=== PATIENT | female | born 1950 | race Caucasian/White ===

== ENCOUNTER → 2020-09-03 10:26 | Outpatient (CLI) | payer MEDICARE, OTHER, SELFPAY ==
--- NOTE | ~2020-09-03 | DEXA_ITS ---
Bone Density Report Name: Trish Callahan Age: 70 Sex: Female Ethnicity: White Date of : 1950 Indication: osteopenia; parental hip fracture; height loss; Referring Provider: Jael Aviles Study: Bone densitometry was performed. Exam Date: September 03, 2020 Accession number: [id number] Bone Density: Region BMD T-score Z-score Classification AP Spine (L1-L4) 0.960 -0.8 1.2 Normal Femoral Neck (Left) 0.626 -2.0 -0.3 Osteopenia Total Hip (Left) 0.763 -1.5 0.0 Osteopenia Femoral Neck (Right) 0.595 -2.3 -0.6 Osteopenia Total Hip (Right) 0.696 -2.0 -0.6 Osteopenia Total Hip Mean 0.730 -1.8 -0.3 Osteopenia World Health Organization criteria for BMD impression classify patients as: Normal (T-score at or above -1.0), Osteopenia (T-score between -1.0 and -2.5), or Osteoporosis (T-score at or below -2.5). 10-year Fracture Risk(1): Major Osteoporotic Fracture 19% Hip Fracture 4.4% Reported Risk Factors: [place] (), Neck BMD=0.595, BMI=21.3, parental fracture (1) FRAX(R) Version 3.08. Fracture probability calculated for an untreated patient. Fracture probability may be lower if the patient has received treatment. Previous Exams: Region Exam Age BMD T-score BMD Change BMD Change Date g/cm2 vs Baseline vs Previous AP Spine(L1-L4) 09/03/2020 70 0.960 -0.8 0.027* 0.027* 04/10/2016 66 0.933 -1.0 Total Hip(Left) 09/03/2020 70 0.763 -1.5 -0.020 -0.020 04/10/2016 66 0.783 -1.3 Total Hip(Right) 09/03/2020 70 0.696 -2.0 -0.030* -0.030* 04/10/2016 66 0.727 -1.8 *Denotes significance at 95% confidence level, LSC for AP Spine = 0.022 g/cm2, LSC for Total Hip = 0.027 g/cm2 Clinical Information Provided by Patient: Parent has had a hip fracture Has used the following medications: Vitamin D, Calcium, MTV Patient maximum height was 63.75 Menopause Age: 51 No regular weight bearing exercise Drinks caffeinated beverages Onset of menses at age 15 Number of children 0 Impression: The patient has low bone mass, based on the Right Femoral Neck T-score. The patient has an estimated ten-year risk of hip fracture of 4.4% and an estimated ten-year risk of major fracture of 19%, based on the WHO FRAX algorithm. The patient has risk factors, including: parental hip fracture. The BMD for the Total Hip(Right) decreased, changing by -0.030 since the last DXA exam. Discussion: BONE DE
== END ==
PROVIDERS: PCP Physician Assistant; Visit Provider Family Medicine
DX: Z78.0 Asymptomatic menopausal state (principal); M85.852 Other specified disorders of bone density and structure, left thigh; M85.851 Other specified disorders of bone density and structure, right thigh
CPT/HCPCS: 77080

== ENCOUNTER 2022-04-08 00:15 | Day surgery (SDC) | payer MEDICARE, OTHER, SELFPAY ==
[2022-03-18 13:47] VITALS: BMI 21.4
[2022-04-08 09:14] VITALS: BP 143/68; PULSE 59; RESP 16; TEMP 36.4; O2SAT 100
[2022-04-08] MEDS: LACTATED RINGERS 1,000 ML 150 ML IV CONT (09:17)
--- NOTE | 2022-04-08 09:51 | WPDGICN ---
Assessment and Plan Assessment and plan (1) Encounter for screening colonoscopy: Code(s): Z12.11 - Encounter for screening for malignant neoplasm of colon Status: Acute Assessment and Plan: Patient presents for screening colonoscopy. Appears to be at average risk for colon polyps. GI Consult Note Consult date/time: 04/08/22 09:51 Reason for consult: Neoplasia screening. HPI: Trish Callahan is a 72 year old female Presents for screening colonoscopy. Patient's current weight appetite and bowel movements are normal. Patient denies abdominal pain. She has had no bleeding. Family history noncontributory. Last exam was 10 years prior to this was unremarkable. Review of Systems Review of Systems: Review of systems noncontributory. PMFSH Social History Social History Smoking status: Former smoker Tobacco type: cigarettes Alcohol intake: current Drinks per week: 5 Living arrangements: with family Spiritual care concerns: No Meds Home Medications and Allergies Home Medications Medication Instructions Recorded Confirmed Type ascorbic acid (vitamin C) 500 mg 500 mg PO DAILY 03/18/22 04/08/22 History tablet calcium carbonate 500 mg calcium 500 mg PO DAILY 03/18/22 04/08/22 History (1,250 mg) tablet cholecalciferol (vitamin D3) 25 25 mcg PO DAILY 03/18/22 04/08/22 History mcg (1,000 unit) tablet (Vitamin D3) irbesartan 300 mg tablet 300 mg PO DAILY 03/18/22 04/08/22 History multivitamin with minerals-folic 1 tablet PO DAILY 03/18/22 04/08/22 History acid 0.4 mg tablet Allergies Allergy/AdvReac Type Severity Reaction Status Date / Time No Known Allergies Allergy Mild Unverified 04/08/22 09:13 Vital Signs Vital Signs - 24 hr 04/08/22 09:14 Temperature 97.6 F Pulse Rate 59 L Respiratory Rate 16 Blood Pressure 143/68 H Pulse Oximetry 100 Oxygen Delivery Room Air Exam Narrative: Physical exam reveals patient be alert. Vital signs stable. HEENT exam is unremarkable. Patient is anicteric. Lungs are clear to auscultation and percussion. Heart is without murmur or extra sounds. Abdominal exam bowel sounds are present soft nontender with no organomegaly. Digital external rectal exam is normal.
--- NOTE | 2022-04-08 10:39 | WPDANESEPPF ---
Anes - Initial Pre Proc Eval Procedure: Operation Date: 04/08/22 10:30 Proposed Procedures p Screening Colonoscopy - Edward Garner MD Date/Time: 04/08/22 10:39 Surgeon: Edward Garner MD Pre Op Diagnosis: neoplasm screening Patient Data Age: 72 Gender: F Height: 1.6 m Weight: 56.4 kg Last Vital Signs Temp 97.6 F 04/08/22 09:14 Pulse 59 L 04/08/22 09:14 Resp 16 04/08/22 09:14 BP 143/68 H 04/08/22 09:14 Pulse Ox 100 04/08/22 09:14 O2 Del Method Room Air 04/08/22 09:14 Allergies Allergy/AdvReac Type Severity Reaction Status Date / Time No Known Allergies Allergy Mild Unverified 04/08/22 09:13 Home Medications Medication Instructions Recorded Confirmed Type ascorbic acid (vitamin C) 500 mg 500 mg PO DAILY 03/18/22 04/08/22 History tablet calcium carbonate 500 mg calcium 500 mg PO DAILY 03/18/22 04/08/22 History (1,250 mg) tablet cholecalciferol (vitamin D3) 25 25 mcg PO DAILY 03/18/22 04/08/22 History mcg (1,000 unit) tablet (Vitamin D3) irbesartan 300 mg tablet 300 mg PO DAILY 03/18/22 04/08/22 History multivitamin with minerals-folic 1 tablet PO DAILY 03/18/22 04/08/22 History acid 0.4 mg tablet Patient hx anesthesia problems: none Family hx anesthesia problems: none Results Review: All pre-operative results and documents have been reviewed as part of the pre-operative evaluation. [facility] Social History Social History Smoking status: Former smoker Tobacco type: cigarettes Alcohol intake: current Drinks per week: 5 Living arrangements: with family Spiritual care concerns: No Anes - Eval Final PreProcedure Day of Procedure 04/08/22 10:39 Patient weight: normal Heart: regular rate and rhythm Lungs: clear to auscultation Airway: Mallampati scale class II Neurological: alert and oriented Last oral intake: >/= 8 hours ASA classification: III Emergent: no Anesthetic plan: proceed Anesthesia type and monitoring: general GIVS and standard monitoring Results Review: All pre-operative results and documents have been reviewed as part of the pre-operative evaluation. Informed Consent: The patient's anesthetic plan and its attendant risks and benefits were discussed with the patient/family/POA. Questions were solicited and answers provided to the satisfaction of the patient/family/POA.
[2022-04-08] MEDS: SIMETHICONE ORAL SUSPENSION 20 MG/0.3 ML 30 ML BOTTLE 0.6 ML IRRIGATION (10:50)
[2022-04-08 10:58] VITALS: BP 126/65; PULSE 64; RESP 22; O2SAT 100
[2022-04-08 11:08] VITALS: BP 140/70; BP 177/60; PULSE 51; PULSE 62; RESP 18; RESP 21; O2SAT 100
== END 2022-04-08 11:24 | disposition home or self-care (01) ==
PROVIDERS: PCP Physician Assistant; Visit Provider Internal Medicine Gastroenterology
PROC: 0DJD8ZZ Inspection of Lower Intestinal Tract, Via Natural or Artificial Opening Endoscopic (ICD-10-PCS; CPT 45378; principal; 2022-04-08 10:30)
DX: Z12.11 Encounter for screening for malignant neoplasm of colon (principal); D12.5 Benign neoplasm of sigmoid colon; K64.8 Other hemorrhoids; Z87.891 Personal history of nicotine dependence
CPT/HCPCS: 45385; 88305; J2704; J7120

== ENCOUNTER → 2022-12-15 08:42 | Outpatient (CLI) | payer MEDICARE, OTHER, SELFPAY ==
--- NOTE | ~2022-12-15 | DEXA_ITS ---
Bone Density Report Name: MARCI RAY Age: 72 Sex: Female Ethnicity: White Date of : 1950 Indication: osteopenia; parental hip fracture; height loss; postmenopausal Referring Provider: Jael Aviles Study: Bone densitometry was performed. Exam Date: December 15, 2022 Accession number: [id number] Bone Density: Region BMD T-score Z-score Classification AP Spine (L1-L4) 0.970 -0.7 1.5 Normal Femoral Neck (Left) 0.657 -1.7 0.1 Osteopenia Total Hip (Left) 0.758 -1.5 0.0 Osteopenia Femoral Neck (Right) 0.647 -1.8 0.0 Osteopenia Total Hip (Right) 0.728 -1.8 -0.2 Osteopenia Total Hip Mean 0.743 -1.7 -0.1 Osteopenia World Health Organization criteria for BMD impression classify patients as: Normal (T-score at or above -1.0), Osteopenia (T-score between -1.0 and -2.5), or Osteoporosis (T-score at or below -2.5). 10-year Fracture Risk(1): Major Osteoporotic Fracture 17% Hip Fracture 4.8% Reported Risk Factors: [place] (), Neck BMD=0.647, BMI=22.3, parental fracture (1) FRAX(R) Version 3.08. Fracture probability calculated for an untreated patient. Fracture probability may be lower if the patient has received treatment. Previous Exams: Region Exam Age BMD T-score BMD Change BMD Change Date g/cm2 vs Baseline vs Previous AP Spine(L1-L4) 12/15/2022 72 0.970 -0.7 0.036* 0.010 09/03/2020 70 0.960 -0.8 0.027* 0.027* 04/10/2016 66 0.933 -1.0 Total Hip(Left) 12/15/2022 72 0.758 -1.5 -0.025 -0.005 09/03/2020 70 0.763 -1.5 -0.020 -0.020 04/10/2016 66 0.783 -1.3 Total Hip(Right) 12/15/2022 72 0.728 -1.8 0.001 0.031* 09/03/2020 70 0.696 -2.0 -0.030* -0.030* 04/10/2016 66 0.727 -1.8 *Denotes significance at 95% confidence level, LSC for AP Spine = 0.022 g/cm2, LSC for Total Hip = 0.027 g/cm2 Clinical Information Provided by Patient: Parent has had a hip fracture Has used the following medications: Vitamin D, Calcium, MTV Patient maximum height was 64 Menopause Age: 51 No regular weight bearing exercise Drinks caffeinated beverages Onset of menses at age 15 Number of children 0 Impression: The patient has low bone mass, based on the Right Total Hip T-score. The patient has an estimated ten-year risk of hip fracture of 4.8% and an estimated ten-year risk of major fracture of 17%, based on
== END ==
PROVIDERS: PCP Family Medicine; Visit Provider Physician Assistant
DX: M85.852 Other specified disorders of bone density and structure, left thigh (principal); M85.851 Other specified disorders of bone density and structure, right thigh
CPT/HCPCS: 77080

== ENCOUNTER 2024-06-14 09:42 | Outpatient (CLI) | payer MEDICARE, OTHER, SELFPAY ==
--- NOTE | ~2024-06-14 | MR_ITS ---
MR breast BI wo/w con 06/14/2024 11:42 CDT INDICATION: Breast implant replacement TECHNIQUE: MRI of the breasts perform using standard protocol pre-and post IV contrast with the follo wing sequences: Axial T2 STIR, axial T1, axial vibrant T1 with fat suppression precontrast and multip hasic postcontrast. COMPARISON: No prior studies for comparison. FINDINGS: RIGHT BREAST: There are no abnormalities on the precontrast sequences. There is mild background paren chymal enhancement. No enhancing lesions following contrast administration. No areas of enhancement meeting threshold criteria on CAD analysis. No evidence of signal abnormalities in the axillary or internal mammary node distributions. There are silicone implants. There are normal radial folds in th e implants without intracapsular or extracapsular rupture. LEFT BREAST: No signal abnormalities on precontrast sequences. There is mild background parenchymal enhancement. No enhancing lesions following contrast administration. No areas of enhancement meeti ng threshold criteria on CAD analysis. No evidence of signal abnormalities in the axillary or inter nal mammary node distributions.There are silicone implants. There are normal radial folds in the impl ants without intracapsular or extracapsular rupture. IMPRESSION: 1: Right breast: Negative. No evidence of malignancy. BI-RADS category 1. Recommend annual mammo graphy follow-up. 2: Left breast: Negative. No evidence of malignancy. BI-RADS category 1. Recommend annual mammogr aphy follow-up. Follow-up MRI may be useful for supplementing mammographic evaluation as clinically indicated. Reviewed, dictated and finalized at location B. IMPRESSION: 1: Right breast: Negative. No evidence of malignancy. BI-RADS category 1. Recommend annual mammography follow-up. 2: Left breast: Negative. No evidence of malignancy. BI-RADS category 1. Re commend annual mammography follow-up. Follow-up MRI may be useful for supplementing mammographic evaluation as clinic ally indicated.
== END 2024-06-14 09:43 | disposition home or self-care (01) ==
LOC: ANHIMG 09:48
PROVIDERS: PCP Family Medicine; Visit Provider Plastic Surgery
DX: Z85.3 Personal history of malignant neoplasm of breast (principal); Z98.82 Breast implant status
CPT/HCPCS: 77049; A9577; C8908